=== PATIENT | male | born 1995 | race Two or more races ===

== ENCOUNTER 2021-01-19 11:39 | Emergency (ER) | payer SELFPAY ==
[~2021-01-19] VITALS: Ht 162.6 cm; Wt 67.0 kg
[2021-01-19 11:53] VITALS: BP 117/84
--- NOTE | 2021-01-19 12:11 | NUR ---
PT HAS CO ABDOMINAL PAIN, STARTED TODAY. NO N/V. SI. PT STATES "HE IS TIRED" AND HAVING "MENTAL HEALTH PROBLEMS" DENIES PLAN FOR SI/SA. STATES HE HAS CUT IN THE PAST. DENIES MEDICATIONS, TAKEN ZYPREXA IN THE PAST.
[2021-01-19] MEDS ORDERED: DICYCLOMINE 20 MG TABLET ONE (12:25)
[2021-01-19] MEDS ORDERED: DICYCLOMINE 20 MG TABLET PO ONE (12:30)
[2021-01-19 12:32] LABS: BASOPHILS % (AUTO) 0 % (0-1); EOSINOPHILS % (AUTO) 0 % (1-7); LYMPHOCYTES % (AUTO) 9 % (22-44); MEAN CORPUSCULAR HEMOGLOBIN 30.7 pg (27.5-34.5); MEAN CORPUSCULAR HGB CONC 33.5 g/dL (33.2-36.2); MEAN PLATELET VOLUME 8.1 fL (7.4-10.4); MONOCYTES % (AUTO) 5 % (2-9); NEUTROPHILS % (AUTO) 86 % (42-75); PLATELET COUNT 336 x10^3/uL (130-400); RED BLOOD COUNT 5.06 x10^6/uL (4.38-5.82); RED CELL DISTRIBUTION WIDTH 13.2 % (9.4-14.8)
[2021-01-19 12:43] LABS: ALANINE AMINOTRANSFERASE 44 U/L (12-78); ALBUMIN 4.7 g/dL (3.4-5.0); ANION GAP 5 mmol/L (5-15); CALCIUM 9.1 mg/dL (8.5-10.1); CHLORIDE 106 mmol/L (98-107); CREATININE 0.82 mg/dL (0.7-1.3)
[2021-01-19 12:44] LABS: SALICYLATE LEVEL < 1.7 mg/dL (2.8-20.0)
--- NOTE | 2021-01-19 12:45 | NUR ---
PT ELOPED. STATES HE IS GOING TO HIS DADS AND EXITED ER. ALL BELONGINGS W PT. PT NOT ON HOLD, NO PLANS OF SI/SA.
[2021-01-19 12:47] LABS: ALKALINE PHOSPHATASE 89 U/L (45-117); BILIRUBIN,TOTAL 0.4 mg/dL (0.2-1.0); TOTAL PROTEIN 8.2 g/dL (6.4-8.2)
== END 2021-01-19 12:46 | disposition left against medical advice (07) ==
LOC: ED 12:40
DX: F33.9 Major depressive disorder, recurrent, unspecified (principal); R10.32 Left lower quadrant pain; R45.851 Suicidal ideations
CPT/HCPCS: 36415; 80053; 80299; 80320; 80329; 83690; 85025; 99284; G0480